=== PATIENT | female | born 2000 | race Caucasian/White ===

== ENCOUNTER 2025-04-16 20:09 | Outpatient (REF) | payer OTHER, SELFPAY ==
--- OUTSIDE RECORDS SUMMARY | 2023-12-31 07:20 | XMS_ITS ---
Author Organization [facility] Address [address] [place] [address] Care Team Providers Care Cut Roll Machine Offbearer Name Role Phone Matilde, Sosa Unavailable [phone] Allergies No Known Allergies REASON FOR VISIT This is my first time at this facility, 1 week of a cough and mucus production Medications Medication SIG (Take, Route, Frequency, Duration) Notes Start Date End Date Status Benzonatate 100 MG 1 capsule as needed Orally Three times a day; Duration: 7 days 12/31/2023 01/07/2024 Active Bromfed DM 2-30-10 MG/5ML 10 mL Orally e very 6 hours; Duration: 5 days 12/31/2023 01/05/2024 Active Loratadine-Pseudoephedrine ER 5-120 MG 1 tablet Orally every 12 hrs; Duration: 10 days 12/31/2023 01/10/2024 Active Vital Signs Temperature 98.3 degrees Fahrenheit 12/31/19 24 Heart Rate 97 /min 12/31/2023 Height 63 in 12/31/2023 Weight 150 lbs 12/31/2023 BMI 26.57 kg/m2 12/31/2023 Oximetry 97 % 12/31/2023 Height-cm 160.02 cm 12/31/2023 Weight-kg 68.04 kg 12/31/2023 Encounters Encounter Location Date Provider Diagnosis [facility] [address] [place] [address] 12/31/2023 Sosa Clayton Viral upper respiratory illness J06.9 and Acute cough R05.1 Assessments Encounter Date Diagnosis (ICD Code) Assessment Notes Treatment Notes Treatment Clinical Notes Section Notes 12/31/2023 Viral upper respiratory illness (ICD-10 - J06.9) 12/31/2023 Acute cough (ICD-10 - R05.1) Plan Of Treatment Medication Medication Name Sig Start Date Stop Date Notes Benzonatate 100 MG 1 capsule as needed Orally Three times a day; Duration: 7 days 12/31/2023 01/07/2024 Bromfed DM 2-30-10 MG/5ML 10 mL Orally e very 6 hours; Duration: 5 days 12/31/2023 01/05/2024 Loratadine-Pseudoephedrine E R 5-120 MG 1 tablet Orally every 12 hrs; Duration: 10 days 12/31/2023 01/10/2024 Progress Notes * Becky PALACIOSDOB:2000 (24 yo F)Acc No.[id number]:12/31/2023 Progress Notes Patient: Becky PRADO Provider: Ericka CLAYTON PA-C :2000 A ge:23 Y S ex:Female Date:12/31/2023 Address:[address], [id number] Subjective: * Chief Complaints: * 1 . This is my first time at this facility. 2. 1 week of a cough and mucus production. * HPI: T ransition of Care: a week of coughm mostly dry, and woke up this AM with sinu scongestion and itchy watery eyes, taking Dayquil/nyquil. no fevers or aches. * ROS: G eneral / Constitutional: Patient denies f ever, chills, lightheadedness, weakness.? A llergy / Immunology: Patient complains of c ough, seasonal allergies, watery eyes. * Medical History: * Allergies: N .K.D.A. Objective: * Vitals: H R:97/min, Temp:98.3F, Oxygen sat %:97%, Wt:150lbs, Wt-k.04 kg, Ht:63in, Ht- cm: 160.02, BMI:26.57Index, Body Surface Area: 1.74. * Examination: G eneral Examination: General appearance: a lert, pleasant, well-nourished and in no acute distress. Head: n ormocephalic, atraumatic. Eyes: s clera anicteric. Ears: a uditory canal clear, tympanic membrane intact and clear. Oral cavity: n ormal. Throat: m ild erythema, no tonsillar edema or exudates.? Heart: r egular rate and rhythm without murmurs. Lungs: c lear to auscultation bilaterally. Assessment: * Assessment: 1. V iral upper respiratory illness - J06.9 (Primary) 2 . A cute cough - R05.1 Plan: * Treatment: * Billing Information: * Visit Code: 84735 OFFICE OR OTHER OUTPATIENT VISIT FOR THE EVALUATION AND MANAGEMENT OF A NEW PATIENT, WHICH REQUIRES THESE 3 BUTT COMPONENTS: A DETAILED HISTORY; A DETAILED EXAMINATION; MEDICAL DECISION MAKING OF LOW COMPLEXITY. COUNSELING AND/OR COORDINATION OF CARE WITH. Modifiers: UD * Procedure Codes: * Electronic signature of JOSE Dotson on 04/16/2025 at 12:31 PM EDT Sign off status: Pending * Provider: Ericka CLAYTON PA-C Date: 0 12/31/2023 Generated for Rosanne tao/Anjana/Doyle on: 0 04/16/2025 12:31 PM EDT History and Physical Notes * HPI (History of Present Illness) Category Sub-Category Detail Notes Category Not es Transition of Care a week of coughm mostly dry, and woke up this AM with sinu scongestion and itchy watery eyes, taking Dayquil/nyquil. no fevers or aches Examination Category Sub-Category Detail Notes Category Not es General Examination General appearance: alert, p leasant, well-nourished and in no acute distress Head: normocephalic, atrau matic Eyes: sclera anicteric Ears: auditory canal clear , tympanic membrane intact and clear Throat: mild erythema, no to nsillar edema or exudates Heart: regular rate and rhy thm without murmurs Lungs: clear to auscultatio n bilaterally Oral cavity: normal
--- OUTSIDE RECORDS SUMMARY | 2025-04-16 13:00 | XMS_ITS | Encounter Summary ---
Author Organization [facility] Address [address] [place] [address] Care Team Providers Care Rocket Engine Tester Name Role Phone Unavailable Primary Care Provider Unavailabl e Reason for Visit * Reason Comments Well Women Visit Encounter Details Date Type Department Care Team (Late st Contact Info) Description 04/16/2025 1:00 PM EDT [facility] [address] [facility] [place] [address] Steve Mondragon DO [address] [facility] [address] [place] [address] Perioral dermatitis (Primary Dx); Well woman exam with routine gynecological exam; Screen for STD (sexually transmitted disease) Social History Tobacco Use Types Packs/Day Years Used Date Smoking Tobacco: Never Tobacco Cessation:Counseling Given: Not Answered Alcohol Use Standard Drinks/Week Comments Never 0 (1 standard drink = 0.6 oz pur e alcohol) Comments No Sex and Gender Information Value Date Recorded Sex Assigned at Female 08/24/2023 5:16 AM EST Legal Sex Female 11:47 PM EDT Gender Identity Female 08/24/2023 5:16 AM EST Sexual Orientation Straight 08/24/2023 5: 16 AM EST Travel History Travel Start Travel End [place] 03/16/2025 03/19/2025 documented as of this encounter Last Filed Vital Signs Vital Sign Reading Time Taken Comments Blood Pressure 122/84 04/16/2025 12:58 PM EDT Pulse - - Temperature - - Respiratory Rate - - Oxygen Saturation - - Inhaled Oxygen Concentration - - Weight 70.5 kg (155 lb 8 oz) 04/16/2025 12:58 PM EDT Height - - Body Mass Index - - documented in this encounter Progress Notes * Carla Flores NP - 04/16/2025 1:00 PM EDT Reason for Appointment: Patient ID: Becky Oliver is a 24 y.o. female who presents for Well Women Visit Patient presents today for Annual Exam. MEDICATIONS Current Outpatient Medications Medication Instructions cephalexin (KEFLEX) 500 mg, Oral, 2 times daily norgestimate-ethinyl estradiol (Barnstable-Linyah) 0.25-35 MG-MCG tablet 1 tablet, Oral, Daily Semaglutide-Weight Management (Wegovy) 0.25 MG/0.5ML solution auto-injector spironolactone (Aldactone) 100 MG tablet valACYclovir (Valtrex) 250 MG split tablet ALLERGIES No Known Allergies PROBLEMS Active Ambulatory Problems Diagnosis Date Noted No Active Ambulatory Problems Resolved Ambulatory Problems Diagnosis Date Noted No Resolved Ambulatory Problems Past Medical History: Diagnosis Date IUD contraception 08/24/2023 Pap smear for cervical cancer screening HISTORY PAST MEDICAL HISTORY SOCIAL HISTORY Past Medical History: Diagnosis Date IUD contraception 08/24/2023 Pap smear for cervical cancer screening 2021 neg Social History Tobacco Use Smoking status: Never Smokeless tobacco: Not on file Substance Use Topics Alcohol use: Never Drug use: Never FAMILY HISTORY Family History Problem Relation Name Age of Onset Anxiety disorder Mother Janett Sheffield Hypertension Mother Janett Sheffield Stroke Mother Janett Sheffield Diabetes Maternal Grandmother Sally Sheffield Heart attack Maternal Grandmother Sally Sheffield Other (liver failure) Paternal Grandmother Gladys Musa Cancer Paternal Grandmother Gladys Musa SURGICAL HISTORY History reviewed. No pertinent surgical history. REVIEW OF SYSTEMS Review of Systems: Review of Systems Constitutional: Negative. HENT: Negative. Eyes: Negative. Respiratory: Negative. Cardiovascular: Negative. Gastrointestinal: Negative. Genitourinary: Negative. Musculoskeletal: Negative. Skin: Positive for rash. Perioral macular rash Neurological: Negative. All other systems reviewed and are negative. Hematological: Negative. Endocrine: Negative. Allergic/Immunologic: Negative. OBJECTIVE Objective: Physical Exam Constitutional: Appearance: Normal appearance. She is well-developed. Genitourinary: Vulva normal. Breasts: Breasts are soft. Right: Normal. Left: Normal. Cardiovascular: Rate and Rhythm: Normal rate and regular rhythm. Pulmonary: Effort: Pulmonary effort is normal. Breath sounds: Normal breath sounds. Abdominal: General: Bowel sounds are normal. There is no distension. Palpations: Abdomen is soft. Tenderness: There is no abdominal tenderness. There is no guarding or rebound. Musculoskeletal: General: No swelling. Normal range of motion. Right lower leg: No edema. Left lower leg: No edema. Neurological: Mental Status: She is alert and oriented to person, place, and time. Skin: General: Skin is warm and dry. Comments: Grazyna oral rash consistent with perioral dermatitis. Psychiatric: Mood and Affect: Mood normal. Behavior: Behavior normal. Vitals and nursing note reviewed. Exam conducted with a car dumper operator present. Vitals: There is no height or weight on file to calculate BMI. BP: 122/84 Patient's last menstrual period was 04/08/2025. ASSESSMENT & PLAN (L71.0) Perioral dermatitis (primary encounter diagnosis) Plan: cephalexin (Keflex) 500 MG capsule (Z01.419) Well woman exam with routine gynecological exam Plan: Pap Smear, norgestimate-ethinyl estradiol (Barnstable-Linyah) 0.25-35 MG-MCG tablet Annual Exam: Patient presents today for an annual exam. Patient states she is doing well and has no complaints. Pap was obtained without difficulty. No orders of the defined types were placed in this encounter. Follow Up: Patient desires OCP's. Rash noted perioral consistent with grazyna-oral dermatitis. Prescription sent for Keflex BID x 1 month. Desires STI cultures. Patient is to return in one year for annual unless needed otherwise. Documented by Carla Flores NP on behalf of: Steve Mondragon DO documented in this encounter Plan of Treatment Scheduled Orders Name Type Priority Associated Diagnoses Orde r Schedule Pap Smear Pathology and Cytology Routine Well woman exam with routine gynecological exam Ordered: 04/16/2025 SUREROSEMARY(R) ADVANCED VAGINITIS PLUS, TMA Pathology and Cytology Routine Screen for STD (sexually transmitted disease) Ordered: 04/16/2025 CHLAMYDIA TRACHOMATIS (GENITO/STI) Lab Routine Screen for STD (sexually transmitted disease) Ordered: 04/16/2025 Neisseria gonorrhea DNA probe, direct Lab Routine Screen for STD (sexually transmitted disease) Ordered: 04/16/2025 documented as of this encounter Visit Diagnoses Diagnosis Perioral dermatitis- Primary Rosacea Well woman exam with routine gynecological exam Routine gynecological examination Screen for STD (sexually transmitted disease) Screening examination for venereal disease documented in this encounter
--- OUTSIDE RECORDS SUMMARY | 2025-04-16 20:13 | XMS_ITS | Patient Health Record ---
Author Organization [facility] Address [address] [place] [address] Support Name Relationship Address Phone Becky Oliver Guarantor Unknown [phone] Allergies No Known Allergies Reason For Referral No Information Plan Of Treatment No Information Insurance Providers Payer Name Payer Address Payer Phone Subscriber Number Group Number Insured Name Patient Relationship to Insured Coverage Start Date Coverage End Date [employer] [place] [employer] [address] [place] [address] [id number] Becky Oliver Self - patient is the insured
--- OUTSIDE RECORDS SUMMARY | 2025-04-16 20:14 | XMS_ITS | Encounter Summary ---
Author Organization [facility] Address [address] [place] [address] Care Team Providers Care Wet Pan Mixer Name Role Phone Unavailable Primary Care Provider Unavailabl e Encounter Details Date Type Department Care Team (Late st Contact Info) Description 04/16/2025 Bamboo flowsheet [facility] [address] [id number] Steve Mondragon DO [address] [facility] [address] [place] [address] Social History Tobacco Use Types Packs/Day Years Used Date Smoking Tobacco: Never Alcohol Use Standard Drinks/Week Comments Never 0 (1 standard drink = 0.6 oz pur e alcohol) Comments No Sex and Gender Information Value Date Recorded Sex Assigned at Female 08/24/2023 5:16 AM EST Legal Sex Female 11:47 PM EDT Gender Identity Female 08/24/2023 5:16 AM EST Sexual Orientation Straight 08/24/2023 5: 16 AM EST Travel History Travel Start Travel End [place] 03/16/2025 03/19/2025 documented as of this encounter Plan of Treatment Not on file documented as of this encounter Visit Diagnoses Not on filedocumented in this encounter
--- OUTSIDE RECORDS SUMMARY | 2025-04-16 20:14 | XMS_ITS | Clinical Summary ---
Author Organization [facility] Address [address] [place] [place] [address] Care Team Providers Care Boat And Plant Utility Supervisor Name Role Phone Unavailable Primary Care Provider Unavailabl e Allergies No known active allergies Medications valACYclovir (Valtrex) 250 MG split tablet Active spironolactone (Aldactone) 100 MG tablet Active Semaglutide-Weight Management (Wegovy) 0.25 MG/0.5ML solution auto-injector Active cephalexin (Keflex) 500 MG capsuleIndications :Perioral dermatitis Take 1 capsule (500 mg) by mouth in the morning and 1 capsule (500 mg) before bedtime. 60 capsule 5 05/16/20 25 Active norgestimate-ethin yl estradiol (Boyd-Linyah) 0.25-35 MG-MCG tabletIndications: Well woman exam with routine gynecological exam Take 1 tablet by mouth Daily 28 tablet 12 5 04/16/20 26 Active Hospital, Clinic, or Other Facility Administered Medication Ordered Dose Route Frequency Start Date End Date Status levonorgestrel (Inge) 13.5 MG IUDIndications:Encoun ter for removal and reinsertion of intrauterine contraceptive device (IUD) IU Once 08/24/2023 04/16/2025 Discontinued Encounters Date Type Department Care Team Description 04/16/2025 1:00 PM EDT Office Visit [facility] [address] [place] [address] [place] [address] Steve Mondragon DO Perioral dermatitis (Primary Dx); Well woman exam with routine gynecological exam; Screen for STD (sexually transmitted disease) 04/16/2025 Zenaida flowsheet [facility] [address] [place] [address] Steve Mondragon DO 04/15/2025 Travel from Last 3 Months Family History Medical History Relation Name Comments Diabetes Maternal Grandmother Sally Sheffield Heart attack Maternal Grandmother Sally Sheffield Anxiety disorder Mother Janett Sheffield Hypertension Mother Janett Sheffield Stroke Mother Janett Sheffield Cancer Paternal Grandmother Gladys Musa liver failure Paternal Grandmother Gladys Musa Relation Name Status Comments Maternal Grandmother Sally Sheffield Mother Janett Sheffield Paternal Grandmother Gladys Musa Alive Social History Tobacco Use Types Packs/Day Years [...] EST Travel History Travel Start Travel End [place] 03/16/2025 03/19/2025 Last Filed Vital Signs Vital Sign Reading Time Taken Comments Blood Pressure 122/84 04/16/2025 12:58 PM EDT Pulse - - Temperature - - Respiratory Rate - - Oxygen Saturation - - Inhaled Oxygen Concentration - - Weight 70.5 kg (155 lb 8 oz) 04/16/2025 12:58 PM EDT Height - - Body Mass Index - - Plan of Treatment Health Maintenance Due Date Last Done Comments Influenza Vaccine (#1) 2025 Insurance
--- OUTSIDE RECORDS SUMMARY | 2025-04-16 20:14 | XMS_ITS | Encounter Summary ---
Author Organization [facility] Address [address] [place] [address] Care Team Providers Care Research And Development Scientist Name Role Phone Unavailable Primary Care Provider Unavailabl e Encounter Details Date Type Department Care Team (Latest Contact Info) Description 04/15/2025 Travel Social History Tobacco Use Types Packs/Day Years Used Date Smoking Tobacco: Never Assessed Comments No Sex and Gender Information Value Date Recorded Sex Assigned at Female 08/24/2023 5:16 AM EST Legal Sex Female 11:47 PM EDT Gender Identity Female 08/24/2023 5:16 AM EST Sexual Orientation Straight 08/24/2023 5: 16 AM EST Travel History Travel Start Travel End [place] 03/16/2025 03/19/2025 documented as of this encounter Plan of Treatment Not on file documented as of this encounter Visit Diagnoses Not on filedocumented in this encounter
--- OUTSIDE RECORDS SUMMARY | 2025-04-16 20:14 | XMS_ITS | Clinical Summary ---
Author Organization [facility] Address [address] [place] [address], [address] [place] [address] Care Team Providers Care Business Support Manager Name Role Phone Unavailable Primary Care Provider Unavailabl e Social History Tobacco Use Types Packs/Day Years Used Date Smoking Tobacco: Never Assessed Comments Unknown Sex and Gender Information Value Date Recorded Sex Assigned at Not on file Legal Sex Female 8:38 AM EST Gender Identity Not on file Sexual Orientation Not on file Plan of Treatment Not on file
--- OUTSIDE RECORDS SUMMARY | 2025-04-16 20:14 | XMS_ITS | Clinical Summary ---
Author Organization [facility] Address [facility] [place] [address] Care Team Providers Care Nib Assembler Name Role Phone No, Physician Primary Care Provider Unavailabl e Allergies No known active allergies Medications No known medications Active Problems No known active problems Social History Tobacco Use Types Packs/Day Years Used Date Smoking Tobacco: Never Smokeless Tobacco: Never Comments No Sex and Gender Information Value Date Recorded Sex Assigned at Not on file Legal Sex Female 11:12 AM EST Gender Identity Not on file Sexual Orientation Not on file Last Filed Vital Signs Vital Sign Reading Time Taken Comments Blood Pressure 125/86 04/20/2023 2:54 PM EDT Pulse 101 04/20/2023 2:54 PM EDT Temperature 36.8 C (98.3 F) 04/20/2023 2:54 PM EDT Respiratory Rate 16 04/20/2023 2:54 PM EDT Oxygen Saturation 96% 04/20/2023 2:54 PM EDT Inhaled Oxygen Concentration - - Weight 67.6 kg (149 lb) 04/20/2023 2:54 PM EDT Height - - Body Mass Index - - Plan of Treatment Health Maintenance Due Date Last Done Comments Wellness Visit 12/27/2003 Depression Screening/Follow-Up (PHQ-2/9) 2012 HIV Screening 12/27/2015 HPV Vaccines (1 - 3-dose series) 12/27/2015 Hepatitis C Screening 2018 Pap Smear 2021 Tetanus: Every 10yrs 04/24/2023 04/24/2013 Chlamydia Screening 04/20/2024 04/20/2023 COVID-19 Vaccine (3 - 2023-2 5 season) 2024 01/11/2021, 12/14/2020 Influenza Vaccine (#1) 2025 Pneumococcal Vaccine: Ped or At-Risk Aged Out No longer eligible b ased on patient's age to complete this topic Procedures Procedure Name Priority Date/Time Associated Diagnosis Comments CHLAMYDIA/GONORRHOE AE AMPLIFIED RNA Routine 04/20/2023 3:09 PM EDT Exposure to chlamydia from Last 3 Months or Most Recently Relevant to Health Maintenance Results * Chlamydia/Gonorrhoeae Amplified RNA (04/20/2023 3:09 PM EDT) Chlamydia trachomatis Amplified RNA NEGATIVE Negative 04/21/2023 10:27 AM EDT [facility] Neisseria gonorrhoeae Amplfied RNA NEGATIVE Negative 04/21/2023 10:27 AM EDT [facility] Swab VAGINAL STRUCTURE / Unknown 04/20/2023 3:09 PM EDT 04/20/2023 10:06 PM EDT Herve Goetz PA-C MICROBIOLOGY - GENERA L ORDERABLES Final Result [facility] [address] [place] [address] from Last 3 Months or Most Recently Relevant to Health Maintenance Insurance [employer] Care Teams Nib Assembler Relationship Specialty Start Date End Date No, Physician [facility] PCP - General 04/20/23
[2025-04-19 14:10] LABS: Age Gdln ACOG Testing Note (.); IGP, rfx Aptima HPV ASCU Note (.)
== END 2025-04-16 20:10 | disposition home or self-care (01) ==
LOC: LAB 20:09
PROVIDERS: Visit Provider Obstetrics & Gynecology
DX: Z01.419 Encounter for gynecological examination (general) (routine) without abnormal findings (principal)
CPT/HCPCS: 88175